=== PATIENT | female | born 1995 | race Caucasian/White ===

== ENCOUNTER 2016-07-13 01:38 | Emergency (ER) | payer BC ==
[~2016-07-13] VITALS: Ht 167.6 cm; Wt 90.0 kg
[~2016-07-13 01:38] MED LIST: ONDA4TAB8 PO
[2016-07-13 01:40] VITALS: Ht 167.6 cm; Wt 90.0 kg
== END 2016-07-13 02:58 | disposition left against medical advice (07) ==
LOC: FTE 01:38 → E/R 02:58
DX: Z53.21 Procedure and treatment not carried out due to patient leaving prior to being seen by health care provider (principal)